=== PATIENT | male | born 1995 | race African-American/Black ===

== ENCOUNTER 2017-12-23 10:13 | Emergency (ER) | payer MEDICAID, OTHER ==
[~2017-12-23] VITALS: Ht 203.2 cm; Wt 91.0 kg
[~2017-12-23 10:13] MED LIST: IBUP-2029 PO; PENI500T PO
[2017-12-23] MEDS ORDERED: LIDOCAINE HCL/EPINEPHRINE 1%-EPI 1:100,000 20 ML VIAL INFIL ONE (10:45)
[2017-12-23] MEDS ORDERED: BACITRACIN ZINC OINT UDPKT TOP ONE (10:45)
[2017-12-23] MEDS ORDERED: LIDOCAINE 1%/EPI 1:100,000 10 ML VIAL IJ ONE (11:00)
[2017-12-23] MEDS ORDERED: HYDROCODONE/ACETAMINOPHEN 5/325MG TABLET PO ONE (11:00)
[2017-12-23 12:40] VITALS: BP 110/74
== END 2017-12-23 12:51 | disposition home or self-care (01) ==
LOC: ER 10:13
DX: S51.811A Laceration without foreign body of right forearm, initial encounter (principal); F17.200 Nicotine dependence, unspecified, uncomplicated; W01.0XXA Fall on same level from slipping, tripping and stumbling without subsequent striking against object, initial encounter; W25.XXXA Contact with sharp glass, initial encounter; Y93.89 Activity, other specified; Y99.8 Other external cause status; Y92.89 Other specified places as the place of occurrence of the external cause
CPT/HCPCS: 12002; 73090; 99284; J3490; X7700; Z7610

== ENCOUNTER 2018-01-03 13:05 | Emergency (ER) | payer MEDICAID ==
[~2018-01-03] VITALS: Ht 203.2 cm; Wt 90.0 kg
[2018-01-03 13:15] VITALS: BP 124/70
== END 2018-01-03 13:51 | disposition home or self-care (01) ==
LOC: ER 13:51
DX: S51.811D Laceration without foreign body of right forearm, subsequent encounter (principal); F17.200 Nicotine dependence, unspecified, uncomplicated; F12.10 Cannabis abuse, uncomplicated; X58.XXXD Exposure to other specified factors, subsequent encounter
CPT/HCPCS: 99281